=== PATIENT | female | born 1990 | race Caucasian/White ===

== ENCOUNTER 2021-11-22 20:45 | Emergency (ER) | payer OTHER, SELFPAY ==
[2021-11-22 21:00] VITALS: BP 140/95; PULSE 91; RESP 16; TEMP 36; O2SAT 95; BMI 42.1
--- NOTE | 2021-11-22 21:10 | CRLHL7_ITS ---
For Patients: As a result of the Century Cures Act, medical imaging exams and procedure reports are released immediately into your electronic medical record. You may view this report before your referring provider. If you have questions, please contact your health care provider. Indication: Medial and lateral malleolar pain Technique: Three views left ankle Comparison: No comparison Findings: Lateral soft tissue swelling normal alignment. Talar dome intact ankle mortise preserved calcaneal spur. Tiny ossific density adjacent to fibula could be related to age-indeterminate avulsion injury. This is only seen on the 1st image Dictated by Rae Horn MD @ 11/22/2021 9:58:10 PM (Electronically Signed)
--- NOTE | 2021-11-22 21:11 | ED.LOWEXIN ---
HPI - Extremity Injury (Lower) General Chief Complaint: Extremity Pain/Injury, Lower Stated Complaint: Ankle Injury Time Seen by Provider: 11/22/21 21:05 History of Present Illness HPI Narrative: 31-year-old woman presenting to the emergency department after injuring her left ankle. She has a history of ankle sprains in the left and it sounds like some sort of a ankle injury sustaining a fibular fracture on the right. She has been icing and elevating since injury stepping off a curb, sounds like an inversion injury, early afternoon now about 7 hours ago. No other injuries are described. She was able to stand on a little bit there and seen and prior to the ER but walking is very difficult. Was in the . Presumably handles pain well. She says this one though caused her to cry. Related Data Home Medications Medication Instructions Recorded Confirmed celecoxib 50 mg capsule (Celebrex) See Rx Instructions PO DAILY 11/22/21 11/22/21 metformin 500 mg tablet 400 mg PO DAILY 11/22/21 11/22/21 sertraline 100 mg tablet 100 mg PO DAILY 11/22/21 11/22/21 trazodone 100 mg tablet 100 mg PO DAILY 11/22/21 11/22/21 Allergies Allergy/AdvReac Type Severity Reaction Status Date / Time No Known Drug Allergies Allergy Verified 11/22/21 21:03 Review of Systems Status of ROS: Reports: 6 or more systems reviewed and unremarkable except as noted in History and below [facility] Medical History Major depression PCOS (polycystic ovarian syndrome) PTSD (post-traumatic stress disorder) Surgical History History of cholecystectomy S/P arthroscopy of right shoulder Social History Smoking Status: Never smoker How often do you have a drink containing alcohol: monthly or less AUDIT-C Alcohol total score: 1 Non-prescribed substance use: denies use Exam Narrative: Exam Narrative: Pleasant. Seen wheelchair. Left leg elevated. Breathing easily. Overweight. Exam of the left leg has a great deal of tenderness over both medial and lateral malleolus posterior aspects distally. No navicular base of 5th metatarsal pain. Do not appreciate much swelling though. No bruising. Cardiovascular with elevated rate. Const: Vital Signs, click to edit/add: Vital Signs - 24 hr 10/01/22 21:00 Temperature 96.8 F L Pulse Rate [Left P ulse Oximeter] 91 Respiratory Rate 16 Blood Pressure [Le ft Upper Arm] 140/95 H Pulse Oximetry 95 Oxygen Delivery Me thod Room Air Documenting provider has reviewed patient's vital signs: yes Course Course Hospital Course: X-rays and ibuprofen pending. Can not quite clear by [place] ankle rules. Vital Signs Vital signs: Initial Vital Signs Temperature 96.8 F L 11/22/21 21:00 Temperature Source Temporal Artery Scan 11/22/21 21:00 Pulse Rate 91 11/22/21 21:00 Pulse Rhythm 11/22/21 21:00 Respiratory Rate 16 11/22/21 21:00 Blood Pressure 140/95 H 11/22/21 21:00 Blood Pressure Mean 110 11/22/21 21:00 Blood Pressure Position Sitting 11/22/21 21:00 Pulse Oximetry 95 11/22/21 21:00 Oxygen Delivery Method 11/22/21 21:00 Vital Signs Temperature 96.8 F L 11/22/21 21:00 Pulse Rate 91 11/22/21 21:00 Respiratory Rate 16 11/22/21 21:00 Blood Pressure 140/95 H 11/22/21 21:00 Pulse Oximetry 95 11/22/21 21:00 Oxygen Delivery Method 11/22/21 21:00 Temperature 96.8 F L 11/22/21 21:00 Pulse Rate 91 11/22/21 21:00 Respiratory Rate 16 11/22/21 21:00 Blood Pressure 140/95 H 11/22/21 21:00 Pulse Oximetry 95 11/22/21 21:00 Oxygen Delivery Method 11/22/21 21:00 MDM - Extremity Injury (Lower) MDM Narrative Medical decision making narrative: xray with maintained mortise. no clear fx by my read though rad overread noting on one view a small ossific density off tip of lat malleolus. (this finding if indeed fx I would still tx as sprain) placed gel cast per pt preference (as opposed to aircast) secured further with RENNY wrap and given crutches when having a little difficulty with bearing weight. Medical Records Attestation: I reviewed the patient's medical records. Discharge Plan Discharge Clinical Impression: Ankle sprain and strain Patient Disposition: Home, Self-Care Condition: Stable Instructions: Ankle Sprain (DC), Crutch Instructions (ED) Additional Instructions: Try to ice a few times daily over the next few days. I like those screw type icing bags; fill with ice and water. Hold them on with an Renny wrap. Elevate at rest. Can take up to 800 mg of ibuprofen per dose or alternatively up to 500 mg naproxen 2 times daily. Either can be combined with up to 1000 mg of acetaminophen per dose. Do try to avoid unnecessary ambulation over the next 2-3 days. The gel cast is helpful to encourage early mobility. Please see handout on ankle sprain rehabilitation. Follow-up if just not improved in a week. Prescriptions: No Action trazodone 100 mg tablet 100 mg PO DAILY sertraline 100 mg tablet 100 mg PO DAILY metformin 500 mg tablet 400 mg PO DAILY celecoxib [Celebrex] 50 mg capsule See Rx Instructions PO DAILY Rx Instructions: unknown dose per patient orally daily; Stand Alone Forms: [employer] Info Instructions
[2021-11-22] MEDS: IBUPROFEN 400 MG TABLET 800 MG PO (21:30)
== END 2021-11-22 22:22 | disposition home or self-care (01) ==
PROVIDERS: Emergency Provider Family Medicine
DX: S93.402A Sprain of unspecified ligament of left ankle, initial encounter (principal); S96.912A Strain of unspecified muscle and tendon at ankle and foot level, left foot, initial encounter; W17.89XA Other fall from one level to another, initial encounter; Y93.01 Activity, walking, marching and hiking; Y92.9 Unspecified place or not applicable; Y99.9 Unspecified external cause status
CPT/HCPCS: 73610; 99283; A9270

== ENCOUNTER 2022-09-09 14:55 | Emergency (ER) | payer OTHER, SELFPAY ==
[2022-09-09 15:14] VITALS: BP 129/81; PULSE 107; RESP 18; TEMP 36.2; O2SAT 96; BMI 40.9
--- NOTE | 2022-09-09 15:52 | CRLHL7_ITS ---
For Patients: As a result of the Century Cures Act, medical imaging exams and procedure reports are released immediately into your electronic medical record. You may view this report before your referring provider. If you have questions, please contact your health care provider. Indication: Back pain Technique: Two views Comparison: None Findings/Impression: Bones: No evidence of fracture. Joint spaces: Minimal osteophytes within the lumbar spine. Soft tissues: Intrauterine device at the level of the pelvis. Right upper quadrant surgical clips. Dictated by Matt Strong MD @ 09/09/2022 5:46:06 PM (Electronically Signed)
--- NOTE | 2022-09-09 15:52 | CRLHL7_ITS ---
For Patients: As a result of the Century Cures Act, medical imaging exams and procedure reports are released immediately into your electronic medical record. You may view this report before your referring provider. If you have questions, please contact your health care provider. Indication: Back pain Technique: Two views Comparison: None Findings/Impression: Bones: Alignment is normal. No fractures or bone lesions. Disc spaces: Unremarkable. Soft tissues: Right upper quadrant surgical clips. Dictated by Matt Strong MD @ 09/09/2022 5:47:47 PM (Electronically Signed)
[2022-09-09] MEDS: KETOROLAC 30 MG/ML inj IM (15:59)
[2022-09-09] MEDS: ONDANSETRON ODT 4 MG TAB PO (15:59)
--- NOTE | 2022-09-09 16:15 | ED_ITS ---
HPI - General Adult General Chief complaint: Back Injury/Pain Stated complaint: severe back / neck pain Time Seen by Provider: 09/09/22 15:37 Source: patient Mode of arrival: ambulatory Limitations: no limitations History of Present Illness HPI narrative: Patient is a 32-year-old female presenting to the emergency department for back pain. Patient states she has a history of chronic back pain and previous thorac ic open surgery that resulted in the removal of her right 1st rib. She states her back pain and numbness to her right arm being chronically getting worse over the past few weeks. She has similar symptoms in the past before her surgery. She was having follow-up with the primary care provider but has not been to get in with them until next week. She states last night her daughter jumped into her arms and since then she is having a large amount of pain to her right upper back in midline low thoracic upper lumbar region. Denies any falls. She states at 1 point pain was so bad it causes her to vomit. She denies any nausea at this time. She has been taking NSAIDs at home without improvement in her symptoms and using icy Hot. Denies weakness, numbness, headache, vision changes, chest pain, shortness of breath. Related Data Home Medications Medication Instructions Recorded Confirmed celecoxib 50 mg capsule (Celebrex) See Rx Instructions PO DAILY 11/22/21 11/22/21 trazodone 100 mg tablet 100 mg PO DAILY 11/22/21 09/09/22 bupropion HCl PO 09/09/22 metformin 500 mg tablet,extended 1,000 mg PO BID 09/09/22 09/09/22 release 24 hr Allergies Allergy/AdvReac Type Severity Reaction Status Date / Time No Known Drug Allergies Allergy Verified 11/22/21 21:03 Review of Systems Status of ROS: Reports: 6 or more systems reviewed and unremarkable except as noted in History and below [facility] Medical History Major depression PCOS (polycystic ovarian syndrome) PTSD (post-traumatic stress disorder) Surgical History History of cholecystectomy S/P arthroscopy of right shoulder Social History Smoking Status: Never smoker Do you use any of these nicotine containing products: Vaping Products Second hand tobacco smoke exposure: No How often do you have a drink containing alcohol: monthly or less How many standard drinks containing alcohol do you have on a typical day: 1 or 2 How often do you have six or more drinks on one occasion: Never AUDIT-C Alcohol total score: 1 Non-prescribed substance use: denies use service: Yes Exam Narrative: Exam Narrative: Const: Well-nourished, Well-developed, in mild distress Eyes: PERRL, no conjunctival injection, and symmetrical lids ENMT: Atraumatic external nose and ears. Moist mucous membranes. MSK:Extremities w/o deformity, Normal Active ROM. Tenderness to patient's paraspinal on the right side about T2. Midline tenderness around T12-L1 Skin: Warm, Dry. No rashes or lesions. Neuro: Normal Muscle tone, No focal neurological deficits. Psych: Awake, Alert, & Oriented x3. Appropriate mood and affect. Const: Vital Signs, click to edit/add: Vital Signs - 24 hr 09/09/22 15:14 09/09/22 17:38 Temperature 97.1 F L 97.6 F Pulse Rate [Right Pulse Oximeter] 107 H 71 Respiratory Rate 18 18 Blood Pressure [Ri ght Upper Arm] 129/81 121/77 Pulse Oximetry 96 96 Oxygen Delivery Me thod Room Air Room Air Course Vital Signs Vital signs: Initial Vital Signs Temperature 97.1 F L 09/09/22 15:14 Temperature Source Temporal Artery Scan 09/09/22 15:14 Pulse Rate 107 H 09/09/22 15:14 Respiratory Rate 18 09/09/22 15:14 Blood Pressure 129/81 09/09/22 15:14 Blood Pressure Mean 97 09/09/22 15:14 Blood Pressure Position Sitting 09/09/22 15:14 Pulse Oximetry 96 09/09/22 15:14 Oxygen Delivery Method Room Air 09/09/22 15:14 Vital Signs Temperature 97.1 F L 09/09/22 15:14 Pulse Rate 107 H 09/09/22 15:14 Respiratory Rate 18 09/09/22 15:14 Blood Pressure 129/81 09/09/22 15:14 Pulse Oximetry 96 09/09/22 15:14 Oxygen Delivery Method Room Air 09/09/22 15:14 Temperature 97.6 F 09/09/22 17:38 Pulse Rate 71 09/09/22 17:38 Respiratory Rate 18 09/09/22 17:38 Blood Pressure 121/77 09/09/22 17:38 Pulse Oximetry 96 09/09/22 17:38 Oxygen Delivery Method Room Air 09/09/22 17:38 Medical Decision Making MDM Narrative Medical decision making narrative: Patient is a 32-year-old female presents emergency department for back pain. She does have chronic back issues with states it has been getting worse over the past few weeks. Got acutely worse last night when her daughter jumped into her arms. She has been trying NSAIDs at home without improvement in her symptoms. She has also been using icy Hot. She notices increased numbness to her right arm but she has had thoracic outlet syndrome in the past in the surgeries corrected. She states this is also moving a progressively worse. She is following up with the primary care provider next week for the symptoms. He denies any other falls or trauma. X-rays of the thoracic and lumbar spine were ordered considering where her tenderness was. She was given Toradol for pain. The Toradol she says made her pain manageable. X-ray showed no acute abnormalities. She is not wanting anything further for pain at this time. Most the pain is in her upper back and she has no saddle anesthesia, fever, loss of bowel or bladder control. No red flag signs and, equina is unlikely at this time. She will be discharged home she is agreeable to this plan. Follow-up with primary care provider Discharge Plan Discharge Clinical Impression: Thoracic back pain Qualifiers: Chronicity: chronic Back pain laterality: midline Qualified Code(s): M54.6 - Pain in thoracic spine Patient Disposition: Home, Self-Care Condition: Improved Instructions: Thoracic Pain (ED) Additional Instructions: Take Tylenol ibuprofen for pain. Return for new worsening symptoms. Continue to follow-up with primary care provider. No fractures were seen on your imaging and you most likely suffered a musculoskeletal strain. Prescriptions: No Action metformin 500 mg tablet extended release 24 hr 1,000 mg PO BID bupropion HCl [Wellbutrin] PO trazodone 100 mg tablet 100 mg PO DAILY celecoxib [Celebrex] 50 mg capsule See Rx Instructions PO DAILY Rx Instructions: unknown dose per patient orally daily; Follow Up/Referrals: Provider,Not a Local [Referring] - Stand Alone Forms: [facility] Info Instructions
[2022-09-09 17:38] VITALS: BP 121/77; PULSE 71; RESP 18; TEMP 36.4; O2SAT 96
== END 2022-09-09 18:26 | disposition home or self-care (01) ==
PROVIDERS: Emergency Provider Student in an Organized Health Care Education/Training Program; PCP Student in an Organized Health Care Education/Training Program
DX: M54.6 Pain in thoracic spine (principal)
CPT/HCPCS: 72072; 72100; 96372; 99282; 99283; A9270; J1885

== ENCOUNTER 2023-04-01 18:26 | Emergency (ER) | payer OTHER, SELFPAY ==
[2023-04-01 18:49] VITALS: BP 140/85; PULSE 86; RESP 16; TEMP 37.1; O2SAT 95; BMI 35.2
--- NOTE | 2023-04-01 19:17 | ED_ITS ---
HPI - GI Bleed General Chief complaint: GI Bleed Stated complaint: Rectal bleeding, loss of weight, abdominal pain Time Seen by Provider: 04/01/23 18:53 History of Present Illness HPI Narrative: This 32-year-old female comes in reporting rectal bleeding over the past day or 2. She noticed initially that there was some bright red blood when wiping herself. Today she had blood in the toilet. She has had some associated abdominal pain related to this. She is otherwise in good health but states that she has lost about 10 lb over the last month as she is undergoing lots of stress and has asked her for a divorce. She states that she was not eating so much initially but now has resumed taking regular food and wondered if this was initially causing these symptoms. She has not had any recent travel or antibiotic use. She states that her mother has the [place] gene and she is due to be tested for her risk for associated diseases related to the [place]le[place] gene. This testing is coming up next week. She arrives here with normal vital signs. Related Data Home Medications Medication Instructions Recorded Confirmed trazodone 100 mg tablet 100 mg PO DAILY 11/22/21 04/01/23 metformin 500 mg tablet,extended 1,000 mg PO BID 09/09/22 04/01/23 release 24 hr fluoxetine 20 mg capsule PO 04/01/23 gabapentin 300 mg capsule 300 mg PO 3XD 04/01/23 04/01/23 phentermine 15 mg-topiramate ER 92 1 cap PO DAILY 04/01/23 04/01/23 mg capsule,[id number] multphas (Qsymia) Allergies Allergy/AdvReac Type Severity Reaction Status Date / Time No Known Drug Allergies Allergy Verified 04/01/23 18:46 Review of Systems Status of ROS: Reports: 10 or more systems reviewed and unremarkable except as noted in History and below Narrative: Constitutional: No fevers, no weight gain or loss. Eyes: No discharge. No vision changes. HENT: No congestion, no sore throat, no ear pain. Cardiovascular: No chest pain, no palpitations. Respiratory: No shortness of breath, no wheezes, no cough. Gastrointestinal: Bright red blood in the toilet with associated abdominal pain and some nausea. No vomiting. Genitourinary: No dysuria, no hematuria. Musculoskeletal: Normal range of motion. Skin: No rashes, no pruritis. Neurological: No dizziness, weakness, sensory change, speech change. Endo/Heme/Allergies: No bruising or bleeding. No polydipsia. Pysch: no suicidality, no anxiety, no insomnia. All other systems reviewed and are negative. [facility] Medical History Major depression PCOS (polycystic ovarian syndrome) PTSD (post-traumatic stress disorder) Surgical History History of cholecystectomy S/P arthroscopy of right shoulder Social History Smoking Status: Never smoker Do you use any of these nicotine containing products: Vaping Products Second hand tobacco smoke exposure: No How often do you have a drink containing alcohol: monthly or less How many standard drinks containing alcohol do you have on a typical day: 1 or 2 How often do you have six or more drinks on one occasion: Never AUDIT-C Alcohol total score: 1 Non-prescribed substance use: denies use service: Yes Exam Narrative: Exam Narrative: Constitutional: Well-developed, well-nourished, no acute distress. HEENT: Normocephalic, atraumatic. Neck: Normal range of motion. Nontender. Supple. Heart: Regular. No murmurs. Normal rate. Intact distal pulses. Lungs: Clear to auscultation. No chest discomfort. No wheezes, rhonchi, or rales. Abdomen: Normal bowel sounds. Mild tenderness. No rebound tenderness. Genitalia: Deferred. Back: No midline tenderness. Normal range of motion. Extremities: Normal range of motion. No injury. Skin: Intact. No rash. Warm. No erythema or pallor. Neurologic: No altered sensation. No weakness. Alert and oriented. Psychiatric: No suicidality. No anxiety or depression. No insomnia. Nursing notes and vitals signs are reviewed. Const: Vital Signs, click to edit/add: Vital Signs - 24 hr 04/01/23 18:49 Temperature 98.7 F Pulse Rate [Pulse Oximeter] 86 Respiratory Rate 16 Blood Pressure [Ri ght Upper Arm] 140/85 H Pulse Oximetry 95 Oxygen Delivery Me thod Room Air Course Vital Signs Vital signs: Initial Vital Signs Temperature 98.7 F 04/01/23 18:49 Temperature Source Temporal Artery Scan 04/01/23 18:49 Pulse Rate 86 04/01/23 18:49 Pulse Rhythm Regular 04/01/23 18:49 Pulse Strength 3+ Normal 04/01/23 18:49 Respiratory Rate 16 04/01/23 18:49 Blood Pressure 140/85 H 04/01/23 18:49 Blood Pressure Mean 103 04/01/23 18:49 Blood Pressure Position Sitting 04/01/23 18:49 Pulse Oximetry 95 04/01/23 18:49 Oxygen Delivery Method Room Air 04/01/23 18:49 Vital Signs Temperature 98.7 F 04/01/23 18:49 Pulse Rate 86 04/01/23 18:49 Respiratory Rate 16 04/01/23 18:49 Blood Pressure 140/85 H 04/01/23 18:49 Pulse Oximetry 95 04/01/23 18:49 Oxygen Delivery Method Room Air 04/01/23 18:49 Temperature 98.7 F 04/01/23 18:49 Pulse Rate 86 04/01/23 18:49 Respiratory Rate 16 04/01/23 18:49 Blood Pressure 140/85 H 04/01/23 18:49 Pulse Oximetry 95 04/01/23 18:49 Oxygen Delivery Method Room Air 04/01/23 18:49 MDM - GI Bleed MDM Narrative Medical decision making narrative: This patient comes in reporting rectal bleeding as described above. She does have some associated abdominal pain when sitting on the toilet but nothing currently. She arrives with normal vital signs. An IV was established and labs are acquired. Lab results returned with normal findings. In particular her hemoglobin is at 14.0. CT scan of the abdomen and pelvis with contrast also shows no acute findings. This patient is okay to return home. It seems more likely that this is a hemorrhoid vein or anal fissure causing some bleeding however I explained to the patient that a colonoscopy or flexible sigmoidoscopy is the definitive diagnostic tool in this regard. She is recommended to have such as scope in the near future. Lab Data Labs: Lab Results 04/01/23 Range/Units 19:20 WBC 8.58 (4.50-11.00) K/uL RBC 4.91 (4.00-5.20) m/uL Hgb 14.0 (12.0-16.0) gm/dL Hct 42.7 (33.0-51.0) % MCV 87 (80-100) fL MCH 29 (26-34) pg MCHC 33 (32-36) gm/dL RDW Coeff of Moraima 13.6 (11.5-15.5) % Plt Count 437 (140-440) K/uL Neut % (Auto) 66.2 (42.0-72.0) % Lymph % (Auto) 25.6 (20-44) % [place] % (Auto) 7.0 (0.0-11.0) % Eos % (Auto) 0.7 (0.0-7.0) % Baso % (Auto) 0.5 (0.0-3.0) % Neut # (Auto) 5.68 (1.7-7.0) K/uL Lymph # (Auto) 2.20 (0.90-2.90) K/uL [place] # (Auto) 0.60 (0.00-0.90) K/UL Eos # (Auto) 0.06 (0.00-0.50) K/uL Baso # (Auto) 0.04 (0.00-0.30) K/uL Abs Immat Gran (auto) 0.00 (0.00-0.30) K/uL Imm/Tot Granulo (auto) 0.0 % Sodium 141 (135-149) mmol/L Potassium 3.3 L (3.6-5.1) mmol/L Chloride 107 (96-114) mmol/L Carbon Dioxide 21 (20-32) mmol/L Anion Gap 13 (7-15) mEq/L BUN 16 (5-24) mg/dL Creatinine 0.8 (0.5-1.5) mg/dL Estimated Creat Clear 85.56 Estimated GFR 99 ml/min Glucose 107 (60-115) mg/dL Calcium 9.2 (8.4-10.6) mg/dL Imaging Data CT scan - abdomen: Radiologist's impression: Normal CT of the abdomen and pelvis. Discharge Plan Discharge Clinical Impression: Bright red rectal bleeding Patient Disposition: Home, Self-Care Condition: Stable Additional Instructions: Continue current plans. Follow up with MD. a colonoscopy or flexible sigmoidoscopy is recommended. Return if worsening. Prescriptions: No Action metformin 500 mg tablet extended release 24 hr 1,000 mg PO BID trazodone 100 mg tablet 100 mg PO DAILY gabapentin 300 mg capsule 300 mg PO 3XD fluoxetine 20 mg capsule PO Qsymia 15-92 mg capsule, ER multiphase 24 hr 1 cap PO DAILY Follow Up/Referrals: JUAQUIN ANDRADE DO [Primary Care Provider] - Stand Alone Forms: [employer] Info Instructions
--- NOTE | 2023-04-01 19:17 | CRLHL7_ITS ---
For Patients: As a result of the Century Cures Act, medical imaging exams and procedure reports are released immediately into your electronic medical record. You may view this report before your referring provider. If you have questions, please contact your health care provider. INDICATION: Rectal bleeding COMPARISON: None. TECHNIQUE: CT of the abdomen and pelvis after the administration of intravenous contrast. Multiplanar axial, coronal, and sagittal reformats were reconstructed. Contrast: 98 mL Isovue 370 intravenously. Oral contrast was not administered. FINDINGS: Lung bases: Normal. Liver: Normal. No masses. Normal vasculature. Gallbladder and biliary tree: Cholecystectomy. No biliary duct dilation. Pancreas: Normal. Spleen: Normal. Normal size. Adrenal glands: Normal. No nodules. Kidneys and bladder: Normal size and position. No cyst or mass. No calculi. No urinary tract dilation. The urinary bladder is normal. GI: Normal. No dilated segments. No abnormal bowel wall thickening or hyperenhancement. Small stool burden. The appendix is normal. Normal appearance of the perineum. Vessels: Aorta and major branches, including the mesenteric vessels: Patent. Normal caliber. No atherosclerotic plaques. IVC and tributaries: Normal. Mesenteric and portal veins: Normal. Peritoneum: No free fluid. Lymph nodes: No adenopathy. Pelvis: IUD appears well positioned within the uterus. Physiologic appearance both adnexa.. Bones: No fractures. No focal bone lesions. Normal for age. Abdominal wall: Normal. IMPRESSION: Normal CT of the abdomen and pelvis. Please note that all CT scans at this facility use dose modulation, iterative reconstruction, and/or weight-based dosing when appropriate to reduce radiation dose to as low as reasonably achievable. Dictated by Augustina Schmitz MD @ 04/01/2023 8:15:19 PM (Electronically Signed)
[2023-04-01 19:34] LABS: Basophils Absolute Auto 0.04 K/uL (0.00-0.30); Basophils Percent Auto 0.5 % (0.0-3.0); Eosinophils Absolute Auto 0.06 K/uL (0.00-0.50); Eosinophils Percent Auto 0.7 % (0.0-7.0); Hematocrit 42.7 % (33.0-51.0); Lymphocytes Percent Auto 25.6 % (20-44); Mean Corpuscular HGB Conc 33 gm/dL (32-36); Mean Corpuscular Hemoglobin 29 pg (26-34); Mean Corpuscular Volume 87 fL (80-100); Neutrophils Absolute Auto 5.68 K/uL (1.7-7.0); Neutrophils Percent Auto 66.2 % (42.0-72.0); Platelet Count* 437 K/uL (140-440); RDW Coefficient of Variation % 13.6 % (11.5-15.5); Red Blood Count 4.91 m/uL (4.00-5.20); White Blood Count* 8.58 K/uL (4.50-11.00)
[2023-04-01 19:46] LABS: Chloride* 107 mmol/L (96-114)
[2023-04-01 19:47] LABS: Potassium* 3.3 mmol/L (3.6-5.1); Slide Review Reflex No; Sodium* 141 mmol/L (135-149)
[2023-04-01 19:49] LABS: Anion Gap 13 mEq/L (7-15); Carbon Dioxide* 21 mmol/L (20-32); Creatinine* 0.8 mg/dL (0.5-1.5); Est. Creatinine Clearance* 85.56; Estimated Glomerular Filt Rate 99 ml/min
[2023-04-01 19:50] LABS: Blood Urea Nitrogen* 16 mg/dL (5-24); Calcium* 9.2 mg/dL (8.4-10.6); Glucose* 107 mg/dL (60-115)
--- OUTSIDE RECORDS SUMMARY | 2023-04-01 20:10 | XMS_ITS | Clinical Summary ---
Author Name Unknown Organization [facility] Address [place], [place] [address] Care Team Providers Care Bradder Name Role Phone Daniella Soares Primary Care Provider [phone] Allergies No known active allergies Medications Medication Sig Dispensed Refills Start Date End Date Status celecoxib (CELEBREX) 100 mg capsule Take 100 mg by mouth. 0 07/14/2021 Active FLUoxetine (PROZAC) 40 mg capsuleIndications:P TSD (post-traumatic stress disorder),Depression , recurrent (HC) Take 1 Capsule (40 mg) by mouth every morning. 90 Capsule 3 07/31/2022 Active traZODone (DESYREL) 100 mg tabletIndications:In somnia, idiopathic Take 2 Tablets (200 mg) by mouth at bedtime. 60 Tablet 11 11/03/2022 10/29/2023 Active metFORMIN (GLUCOPHAGE XR) 500 mg Extended-Release tabletIndications:Po lycystic ovaries TAKE 4 TABLETS(2000 MG) BY MOUTH EVERY DAY WITH THE EVENING MEAL 360 Tablet 0 12/27/2022 Active gabapentin (NEURONTIN) 300 mg capsuleIndications:C hronic bilateral low back pain with bilateral sciatica TAKE 1 CAPSULE(300 MG) BY MOUTH THREE TIMES DAILY 90 Capsule 2 01/04/2023 Active phentermine-topirama te 15-92 mg (Qsymia) 15-92 mgIndications:Obesit y, unspecified classification, unspecified obesity type, unspecified whether serious comorbidity present Take 1 Capsule by mouth once daily. 30 Capsule 0 02/18/2023 Active Active Problems Problem Noted Date Diagnosed Date Chronic post-traumatic stress disorder 3 Genital warts 09/15/2022 Instability of joint 09/15/2022 Coccydynia 09/15/2022 Myopia 09/15/2022 Astigmatism 09/15/2022 Allergic rhinitis 09/15/2022 Adjustment insomnia 09/15/2022 Nonmenstrual vaginal bleeding 09/15/2022 Obesity 09/15/2022 Screening for malignant neoplasm of cervix 09/15 Low grade squamous intraepit helial lesion (LGSIL) on Papanicolaou smear of cervix 09/15/2022 Atypical squamous cells of u ndetermined significance (ASCUS) on Papanicolaou smear of cervix 09/15/2022 Thoracic outlet syndrome 09/15/2022 Overview: 4-5 years ago in [place]. Corrected via surgery. IUD contraception 06/29/2022 Overview: Placed 4.5 years ago. Anxiety state 09/28/2012 06/29/2022 Polycystic ovaries 11/13/2011 06/29/2022 Personal history of other ge nital system and obstetric disorders(V13.29) 11/13/2011 06/29/2022 Non-atypical endometrial cells on cervical Pap s mear 11/13/2011 06/29/2022 Major depressive disorder, recurrent episode, mo derate 11/13/2011 06/29/2022 Encounters Date Type Department Care Team Description 03/24/2023 Telephone [facility] [address] [place] [id number] Deanne Aguiar Cancer Genetics 02/24/2023 1:00 PM LITIGATION DOCKET MANAGER Telemedicine [facility] [address], [place] [address] Tasha Plascencia MS, [facility] Counseling (Cancer genetics/) 02/24/2023 Telephone [facility] [address] [place] [address] Deanne Aguiar Cancer Genetics 02/24/2023 Travel 02/19/2023 Telephone [facility] [address] [place] [id number] Deanne Aguiar Cancer Genetics 02/18/2023 Telephone [facility] [address] [place] [address] Stefania Deanne Cancer Genetics 02/16/2023 Telephone [facility] [address] [place] [address] Daniella Soares, DO Refill Request (Contrave ER) 02/09/2023 Telephone [facility] [address] [place] [address] Deanne Aguiar Cancer Genetics 01/03/2023 Refill [facility] [address] [place] [address] Daniella Soares, DO Refill Request (Gabapentin) 12/31/2022 Telephone [facility] [address] [place] [address] Daniella Soares, DO Refill Request (Qsymia 15-92mg capsules ) from Last 3 Months Family History Medical History Relation Name Comments Skin cancer Father Heart Disease Maternal Grandmother Heart attack Maternal Grandmother Stroke Maternal Grandmother Cancer-breast Mother Stage 1 Diabetes type II Mother Cancer Paternal Grandfather bladder Relation Name Status Comments Father Maternal Grandmother Mother Paternal Grandfather Social History Tobacco Use Types Packs/Day Years Used Date Smoking Tobacco: Never Smokeless Tobacco: Never Tobacco Cessation:Counseling Given: Yes Alcohol Use Standard Drinks/Week Comments Yes 0 (1 standard drink = 0.6 oz pur e alcohol) 1 time a month PHQ-2 Answer Date Recorded PHQ-2 TOTAL SCORE 3 06/29/2022 Social Connections Answer Date Recorded Frequency of Communication with Friends and Fami ly 0 11/03/2022 Financial Resource Strain Answer Date R ecorded Difficulty of Paying Living Expenses 3 11/03/2022 Difficulty of Paying Living Expenses Not on file 11/03/2022 Food Insecurity Answer Date Recorded Worried About Running Out of Food in the Last Ye ar 1 11/03/2022 Transportation Needs Answer Date Record ed Lack of Transportation (Medical) 1 11/03/2022 Housing Stability Answer Date Recorded Unable to Pay for Housing in the Last Year 1 11/03/2022 Sex and Gender Information Value Date Recorded Sex Assigned at Not on file Gender Identity Not on file Sexual Orientation Not on file Obstetrics History Para Term AB IAB SAB Ectopic Multiple Livin g Live Births 2 1 1 1 1 1 Date Outcome GA Total Labor Labor/2nd/3rd Weight Sex Delivery Anes PTL Albertina A1 A5 Name Cl in Term SAB Last Filed Vital Signs Vital Sign Reading Time Taken Comments Blood Pressure 108/75 11/03/2022 7:19 AM CDT Pulse 91 11/03/2022 7:19 AM CDT Temperature 36.8 ??C (98.2 ??F) 07/09/2013 1:45 PM CD T Respiratory Rate 16 07/09/2013 4:15 PM CDT Oxygen Saturation 99% 11/03/2022 7:19 AM CDT Inhaled Oxygen Concentration - - Weight 107.5 kg (237 lb) 11/03/2022 7:19 AM CDT Height 162.6 cm (5' 4) 11/03/2022 7:19 AM CDT Body Mass Index 40.68 11/03/2022 7:19 AM CDT Plan of Treatment Upcoming Encounters Date Type Department Care Team (Late st Contact Info) Description 04/06/2023 11:15 AM LITIGATION DOCKET MANAGER Orders Only [facility] [address] [place] [address] Lab, [place] Health Maintenance Due Date Last Done Comments COVID-19 vaccine series (#1) 1988 Tdap 06/28/1999 HIV for age 15-65 06/28/2003 Hepatitis C screening for age 18-79 2006 Tetanus booster 2008 Influenza for age 9-49 10/23/2022 Depression screening for age 12+ 07/03/2023 07/02/2022, 06/30/2022, 06/29/2022, Additional history exists BMI (ht and wt on same day) for age 18+ 11/04/2023 11/03/2022, 09/15/2022, 06/29/2022 Pap test for age 21-65 11/04/2027 11/03/2022, 2022 Pneumococcal series for age 6-64 Aged Out No longer eligible based on patient's age to complete this topic Care Teams Bradder Relationship Specialty Start Date End Date Daniella Soares DO [address] [place] [address] PCP - General Family Practice 08/13/22
[2023-04-01 20:48] VITALS: BP 140/85; PULSE 86; RESP 16; TEMP 37.1
== END 2023-04-01 20:48 | disposition home or self-care (01) ==
PROVIDERS: Emergency Provider Emergency Medicine Emergency Medical Services; PCP Student in an Organized Health Care Education/Training Program
DX: K62.5 Hemorrhage of anus and rectum (principal)
CPT/HCPCS: 36415; 74177; 80048; 85025; 99284; 99285; Q9967

== ENCOUNTER 2023-06-25 06:57 | Emergency (ER) | payer OTHER, SELFPAY ==
[2023-06-25 07:04] VITALS: BP 126/79; PULSE 98; RESP 18; TEMP 36.7; O2SAT 98; BMI 37.8
--- NOTE | 2023-06-25 07:49 | ED_ITS ---
HPI - General Adult General Date Seen: 06/25/23 <Sterling Kauffman MD - Last Filed: 06/25/23 12:38> Chief complaint: Back Injury/Pain <Sterling Kauffman MD - Last Filed: 06/25/23 12:38> Stated complaint: back pain/ numbness in hands/legs <Sterling Kauffman MD - Last Filed: 06/25/23 12:38> Time Seen by Provider: 06/25/23 07:18 <Sterling Kauffman MD - Last Filed: 06/25/23 12:38> Source: patient <Sterling Kauffman MD - Last Filed: 06/25/23 12:38> Mode of arrival: EMS <Sterling Kauffman MD - Last Filed: 06/25/23 12:38> Limitations: no limitations <Sterling Kauffman MD - Last Filed: 06/25/23 12:38> History of Present Illness HPI narrative: Patient is a 32-year-old female who comes in by EMS with complaints of severe low back pain. She complains of of numbness and tingling in her right delgado nd and right foot. She apparently takes gabapentin 900 mg at bedtime but does not take any other prescription medications for her back. Her PCP is at [facility] in [place]. She states that she has had back pain her entire life. This began in her teen years and got worse when she was in the [employer]. She is had x- rays in the past. She had an MRI last summer that just showed some DJD but no other focal findings. No injury to the back this week. She does not know what triggered her pain this morning but states that was so severe that she could not even roll over in bed which is why she called the ambulance. She occasionally takes aspirin but does not take any other anti-inflammatories or muscle relaxers. She has lost some weight which she thought might make her pain better but it has not. She denies any bowel or bladder dysfunction. She lives alone. <Sterling Kauffman MD - Last Filed: 06/25/23 12:38> Related Data Home medications: Home Medications Medication Instructions Recorded Confirmed trazodone 100 mg tablet 100 mg PO DAILY 10/01/22 02/08/24 metformin 500 mg tablet,extended 1,000 mg PO BID 09/09/22 04/01/23 release 24 hr fluoxetine 20 mg capsule PO 04/01/23 gabapentin 300 mg capsule 300 mg PO 3XD 04/01/23 04/01/23 phentermine 15 mg-topiramate ER 92 1 cap PO DAILY 04/01/23 04/01/23 mg capsule,[id number] multphas (Qsymia) <Sterling Kauffman MD - Last Filed: 06/25/23 12:38> Allergies/adverse reactions: Allergies Allergy/AdvReac Type Severity Reaction Status Date / Time No Known Drug Allergies Allergy Verified 04/01/23 18:46 <Sterling Kauffman MD - Last Filed: 06/25/23 12:38> Review of Systems Narrative: Review of systems is outlined above otherwise noted to be negative. She is on Prozac for depression, metformin for PCOS, trazodone for sleep, phentermine/Topamax for weight loss. <Sterling Kauffman MD - Last Filed: 06/25/23 12:38> [facility] Medical History: Medical History Major depression PCOS (polycystic ovarian syndrome) PTSD (post-traumatic stress disorder) <Sterling Kauffman MD - Last Filed: 06/25/23 12:38> Surgical History: Surgical History History of cholecystectomy S/P arthroscopy of right shoulder <Sterling Kauffman MD - Last Filed: 06/25/23 12:38> Social History: Social History Smoking Status: Never smoker Do you use any of these nicotine containing products: Vaping Products Second hand tobacco smoke exposure: No How often do you have a drink containing alcohol: monthly or less How many standard drinks containing alcohol do you have on a typical day: 1 or 2 How often do you have six or more drinks on one occasion: Never AUDIT-C Alcohol total score: 1 Non-prescribed substance use: denies use service: Yes <Sterling Kauffman MD - Last Filed: 06/25/23 12:38> Exam Narrative: Exam Narrative: Vitals noted. Neck: She has full range of motion of the cervical spine. Lungs: Clear to auscultation in all stoner. No wheezes, rales, rhonchi. Heart: Regular rate and rhythm without murmur. Abdomen: Soft and nontender. No guarding, rigidity, rebound. Bowel sounds are normal. No palpable masses. Extremities: No cyanosis or edema. Good distal pulses. Skin: No abnormalities noted of the exposed skin. Neurologic: Awake, alert, fully oriented. Neurologic exam is nonfocal. Straight leg raising is negative. She struggles to sit up from a supine position. She has tightness and tenderness of the paraspinous column in the right low back. <Sterling Kauffman MD - Last Filed: 06/25/23 12:38> Const: Vital Signs, click to edit/add: Vital Signs - 24 hr 06/25/23 07:04 Temperature 98.1 F Pulse Rate [Pulse Oximeter] 98 Respiratory Rate 18 Blood Pressure [Ri ght Upper Arm] 126/79 Pulse Oximetry 98 Oxygen Delivery Me thod Room Air <Sterling Kauffman MD - Last Filed: 06/25/23 12:38> Vital Signs, click to edit/add: Vital Signs - 24 hr 06/25/23 07:04 Temperature 98.1 F Pulse Rate [Pulse Oximeter] 98 Respiratory Rate 18 Blood Pressure [Ri ght Upper Arm] 126/79 Pulse Oximetry 98 Oxygen Delivery Me thod Room Air <Sterling Astudillo MD - Last Filed: 06/28/23 15:26> Course Course ED Course: Patient seen and examined. IV is established and she is given Toradol 30 mg IV, lorazepam 0.5 mg IV. He is also given Tylenol 1000 mg orally. I did look through the [facility] system and she has not had any opiates prescribed to her. <Sterling Kauffman MD - Last Filed: 06/25/23 12:38> Reevaluation(s) Reevaluation #1: Baudilio -- Received this patient at change of shift. Reviewed chart and symptoms with patient. Underlying chronic low back pain for which she takes gabapentin. Over the last week though has markedly intensified to the point this morning could barely transition out of bed due to intense pain in the right lower perispinal back. Numbness and tingling somewhat into both right upper and lower extremities. Has not had a history of radicular pain. On reexamination pain is centered around the right sacroiliac joint. Pain within the joint. Worse with straight leg raise on the right side though would not consider this straight leg raise positive; it causes more pain in this sacroiliac area. I do not think has seen full effect of Toradol. She is able to transition somewhat now in bed albeit with discomfort still. Will be applying an ice pack and a lidocaine patch. Given information on sacroiliac joint pain. See patient discharge plan for further discussion <Sterling Astudillo MD - Last Filed: 06/28/23 15:26> Vital Signs Vital signs: Initial Vital Signs Temperature 98.1 F 06/25/23 07:04 Temperature Source Temporal Artery Scan 06/25/23 07:04 Pulse Rate 98 06/25/23 07:04 Respiratory Rate 18 06/25/23 07:04 Blood Pressure 126/79 06/25/23 07:04 Blood Pressure Mean 94 06/25/23 07:04 Blood Pressure Position Sitting 06/25/23 07:04 Pulse Oximetry 98 06/25/23 07:04 Oxygen Delivery Method Room Air 06/25/23 07:04 Vital Signs Temperature 98.1 F 06/25/23 07:04 Pulse Rate 98 06/25/23 07:04 Respiratory Rate 18 06/25/23 07:04 Blood Pressure 126/79 06/25/23 07:04 Pulse Oximetry 98 06/25/23 07:04 Oxygen Delivery Method Room Air 06/25/23 07:04 Temperature 98.1 F 06/25/23 07:04 Pulse Rate 98 06/25/23 07:04 Respiratory Rate 18 06/25/23 07:04 Blood Pressure 126/79 06/25/23 07:04 Pulse Oximetry 98 06/25/23 07:04 Oxygen Delivery Method Room Air 06/25/23 07:04 <Sterling Kauffman MD - Last Filed: 06/25/23 12:38> Initial Vital Signs Temperature 98.1 F 06/25/23 07:04 Temperature Source Temporal Artery Scan 06/25/23 07:04 Pulse Rate 98 06/25/23 07:04 Respiratory Rate 18 06/25/23 07:04 Blood Pressure 126/79 06/25/23 07:04 Blood Pressure Mean 94 06/25/23 07:04 Blood Pressure Position Sitting 06/25/23 07:04 Pulse Oximetry 98 06/25/23 07:04 Oxygen Delivery Method Room Air 06/25/23 07:04 Vital Signs Temperature 98.1 F 06/25/23 07:04 Pulse Rate 98 06/25/23 07:04 Respiratory Rate 18 06/25/23 07:04 Blood Pressure 126/79 06/25/23 07:04 Pulse Oximetry 98 06/25/23 07:04 Oxygen Delivery Method Room Air 06/25/23 07:04 Temperature 98.1 F 06/25/23 07:04 Pulse Rate 98 06/25/23 07:04 Respiratory Rate 18 06/25/23 07:04 Blood Pressure 126/79 06/25/23 07:04 Pulse Oximetry 98 06/25/23 07:04 Oxygen Delivery Method Room Air 06/25/23 07:04 <Sterling Astudillo MD - Last Filed: 06/28/23 15:26> Medications Administered Medications: Discontinued Medications Generic Name Dose Route Start Last Admin Trade Name Freq PRN Reason Stop Dose Admin Acetaminophen 1,000 mg 06/25/23 07:31 06/25/23 08:11 Acetaminophen 500 Mg Tablet PO 06/25/23 07:32 1,000 mg ONCE ONE Administration Ketorolac Tromethamine 30 mg 06/25/23 07:31 06/25/23 08:11 Ketorolac 30 Mg/Ml Inj IVP 06/25/23 07:32 30 mg ONCE ONE Administration Lidocaine 1 patch 06/25/23 09:00 06/25/23 09:15 Lidocaine 5% Patch TRANSDERMA 06/25/23 09:01 1 patch ONCE ONE Administration Protocol Lorazepam 0.5 mg 06/25/23 07:34 06/25/23 08:11 Lorazepam 2 Mg/Ml Inj IVP 06/25/23 07:35 0.5 mg ONCE ONE Administration <Sterling Kauffman MD - Last Filed: 06/25/23 12:38> Discontinued Medications Generic Name Dose Route Start Last Admin Trade Name Freq PRN Reason Stop Dose Admin Acetaminophen 1,000 mg 06/25/23 07:31 06/25/23 08:11 Acetaminophen 500 Mg Tablet PO 06/25/23 07:32 1,000 mg ONCE ONE Administration Ketorolac Tromethamine 30 mg 06/25/23 07:31 06/25/23 08:11 Ketorolac 30 Mg/Ml Inj IVP 06/25/23 07:32 30 mg ONCE ONE Administration Lidocaine 1 patch 06/25/23 09:00 06/25/23 09:15 Lidocaine 5% Patch TRANSDERMA 06/25/23 09:01 1 patch ONCE ONE Administration Protocol Lorazepam 0.5 mg 06/25/23 07:34 06/25/23 08:11 Lorazepam 2 Mg/Ml Inj IVP 06/25/23 07:35 0.5 mg ONCE ONE Administration <Sterling Astudillo MD - Last Filed: 06/28/23 15:26> Discharge Plan Discharge Clinical Impression: Pain of right sacroiliac joint <Sterling Kauffman MD - Last Filed: 06/25/23 12:38> Patient Disposition: Home w/ Parent or Adult <Sterling Kauffman MD - Last Filed: 06/25/23 12:38> Condition: Improved <Sterling Kauffman MD - Last Filed: 06/25/23 12:38> Additional Instructions: Since I think this a joint involved I would consider icing as discussed 2- 3 times daily over the next few days in the area where it seems to be hurting. If you think the lidocaine patch was helpful, you can purchase these [id number]. I would consider taking naproxen 375-500 mg 2 times daily as needed and maybe regularly over the next 3 days. Can take up to 1000 mg of acetaminophen per dose which can be combined of naproxen as well. See handout as exercises that you might start. I would make an appoint with your primary care provider or message them inquiring about physical therapy. If you have a chiropractor in mind, they might be helpful as well. Show this handout at follow-up appointments. Prednisone and some Wylie from [facility]. <Sterling Kauffman MD - Last Filed: 06/25/23 12:38> Prescriptions: No Action metformin 500 mg tablet extended release 24 hr 1,000 mg PO BID trazodone 100 mg tablet 100 mg PO DAILY gabapentin 300 mg capsule 300 mg PO 3XD fluoxetine 20 mg capsule PO Qsymia 15-92 mg capsule, ER multiphase 24 hr 1 cap PO DAILY <Sterling Kauffman MD - Last Filed: 06/25/23 12:38> Follow Up/Referrals: JUAQUIN ANDRADE DO [Primary Care Provider] - <Sterling Kauffman MD - Last Filed: 06/25/23 12:38> Stand Alone Forms: My[facility] Info Instructions <Sterling Kauffman MD - Last Filed: 06/25/23 12:38>
--- OUTSIDE RECORDS SUMMARY | 2023-06-25 07:56 | XMS_ITS | Clinical Summary ---
Author Name Unknown Organization [facility] Address [place], [place] [address] Care Team Providers Care Gi Technician Name Role Phone Daniella Soares Primary Care Provider [phone] Allergies No known active allergies Medications Medication Sig Dispensed Refills Start Date End Date Status celecoxib (CELEBREX) 100 mg capsule Take 100 mg by mouth. 07/14/2021 Active FLUoxetine (PROZAC) 40 mg capsuleIndications: PTSD (post-traumatic stress disorder),Depressio n, recurrent (HC) Take 1 Capsule (40 mg) by mouth every morning. 90 Capsule 3 07/31/2022 Active traZODone (DESYREL) 100 mg tabletIndications:I nsomnia, idiopathic Take 2 Tablets (200 mg) by mouth at bedtime. 60 Tablet 11 11/03/2022 10/29/2023 Active metFORMIN (GLUCOPHAGE XR) 500 mg Extended-Release tabletIndications:P olycystic ovaries TAKE 4 TABLETS(2000 MG) BY MOUTH EVERY DAY WITH THE EVENING MEAL 360 Tablet 12/27/2022 Active gabapentin (NEURONTIN) 300 mg capsuleIndications: Chronic bilateral low back pain with bilateral sciatica Take 1 Capsule (300 mg) by mouth three times daily. 270 Capsule 2 04/30/2023 Active phentermine-topiram ate 15-92 mg (Qsymia) 15-92 mgIndications:Obesi ty, unspecified classification, unspecified obesity type, unspecified whether serious comorbidity present Take 1 Capsule by mouth once daily. 30 Capsule 05/24/2023 Active Active Problems Problem Noted Date Diagnosed [...] syndrome 09/15/2022 Overview: 4-5 years ago in [place]. Corrected via surgery. IUD contraception 06/29/2022 Overview: Placed 4.5 years ago. Anxiety state 09/28/2012 06/29/2022 Polycystic ovaries 11/13/2011 06/29/2022 Personal history of other ge nital system and obstetric disorders(V13.29) 11/13/2011 Non-atypical endometrial cells on cervical Pap s mear 11/13/2011 06/29/2022 Major depressive disorder, recurrent episode, mo derate 11/13/2011 06/29/2022 Encounters Date Type Department Care Team Description 05/30/2023 Telephone [facility] [address] [place] [address] Daniella Soares, Prior Authorization (phentermine-topiramate 15-92 mg (Qsymia) 15-92 mg Denied) 04/29/2023 Refill [facility] [address] [place] [address] Daniella Soares DO Refill Request (Gabapentin, Qsymia) 04/13/2023 Telephone [facility] [address] [facility] [address] [place] [address] Tasha Plascencia, MS, CGC Results (Cancer genetic testing) 04/06/2023 11:15 AM MOLD WASHER Orders Only [facility] [address] [place] [address] Lab, [place] Lab 04/06/2023 Travel 04/01/2023 Orders Only [facility] Scanner 1 scan: (1-Ord) [facility], RECTAL BLEEDING, 04/01/2023 from Last 3 Months Family History Medical [...] Care Team (Late st Contact Info) Description 07/06/2023 12:25 PM CDT Office Visit [facility] [address] [place] [address] Daniella Soares DO [address] [place] [address] Health Maintenance Due Date Last Done Comments Tdap 06/28/1999 HIV for age 15-65 06/28/2003 Hepatitis C screening for age 18-79 2006 Tetanus booster 2008 COVID-19 vaccine series (2022- season) 2022 Depression screening for age 12+ 07/03/2023 07/02/2022, 06/30/2022, 06/29/2022, Additional history exists Influenza for age 9-49 10/24/2023 BMI (ht and wt on same day) for age 18+ 11/04/2023 11/03/2022, 09/15/2022, 06/29/2022 Pap test for age 21-65 11/04/2027 11/03/2022, 2022 Pneumococcal series for age 6-64 Aged Out No longer eligible based on patient's age to complete this topic Procedures Procedure Name Priority Date/Time Associated Diagnosis Comments SCAN-CT INTERPRETATION 12:00 AM MOLD WASHER HPV THIN PREP Routine 11/03/2022 7:21 AM CDT Screening for cervical cancer from Last 3 Months or Most Recently Relevant to Health Maintenance Results * SCAN-CT INTERPRETATION (04/01/2023 12:00 AM MOLD WASHER) Anatomical Region Laterality Modality Other Scanner OTHER * HPV HIGH RISK (11/03/2022 7:21 AM CDT) TYPE 16 Negative Negative 11/05/2022 2:40 PM CDT [facility] TYPE 18 Negative Negative 11/05/2022 2:40 PM CDT [facility] OTHER HIGH RISK TYPES Negative Negative 11/05/2022 2:40 PM CDT [facility] Other (Cervical) Non-Blood / Unknown 11/03/2022 7:21 AM CDT 11/04/2022 9:49 AM CDT Narrative [facility] - 11/05/2022 2:40 PM CDT HPV types 16, 18, 31, 33, 35, 39, 45, 51, 52, 56, 58, 59, 66 and 68 DNA were undetectable or below the pre-set threshold. Methodology: Caesar Carmel 4800 HPV Test Heaven Soares DO MICROBIOLOGY [facility] [address] [place] [address], from Last 3 Months or Most Recently Relevant to Health Maintenance Care Teams Gi Technician Relationship Specialty Start Date End Date Daniella Soares DO [address] [place] [id number] PCP - General Family Practice 08/13/22
[2023-06-25] MEDS: ACETAMINOPHEN 500 MG TABLET 1000 MG PO (08:11)
[2023-06-25] MEDS: KETOROLAC 30 MG/ML inj IVP (08:11)
[2023-06-25] MEDS: LORazepam 2 MG/ML inj 0.5 MG IVP (08:11)
[2023-06-25] MEDS: LIDOCAINE 5% PATCH 1 PATCH TRANSDERMA (09:15)
== END 2023-06-25 10:52 | disposition home or self-care (01) ==
PROVIDERS: Emergency Provider Family Medicine; PCP Student in an Organized Health Care Education/Training Program
DX: M53.3 Sacrococcygeal disorders, not elsewhere classified (principal)
CPT/HCPCS: 96374; 96375; 99282; 99283; A9270; J1885; J2060